=== PATIENT | female | born 1985 | race Caucasian/White ===

== ENCOUNTER 2019-09-11 13:31 | Emergency (ER) | payer OTHER ==
[~2019-09-11] VITALS: Ht 165.1 cm; Wt 67.1 kg
[2019-09-11 13:35] VITALS: BP 117/91
[2019-09-11] MEDS ORDERED: ONDANSETRON 4 MG TAB.RAPDIS ONE (14:42)
[2019-09-11] MEDS ORDERED: HYDROCODONE/APAP 5/325MG 1 EACH TABLET ONE (14:42)
[2019-09-11] MEDS: ONDANSETRON 4 MG TAB.RAPDIS PO ONE (14:51)
[2019-09-11] MEDS: HYDROCODONE/APAP 5/325MG 1 EACH TABLET PO ONE (14:51)
== END 2019-09-11 15:18 | disposition home or self-care (01) ==
LOC: ER 13:35
DX: S16.1XXA Strain of muscle, fascia and tendon at neck level, initial encounter (principal); G89.29 Other chronic pain; M54.2 Cervicalgia; F31.9 Bipolar disorder, unspecified; V49.59XA Passenger injured in collision with other motor vehicles in traffic accident, initial encounter; Y93.89 Activity, other specified; Y92.481 Parking lot as the place of occurrence of the external cause; Y99.8 Other external cause status
CPT/HCPCS: 72125; 99284; Q0162